=== PATIENT | male | born 1985 | race Caucasian/White ===

== ENCOUNTER 2016-06-01 14:46 | Inpatient (IN) | payer OTHER ==
[~2016-06-01] VITALS: Ht 182.9 cm; Wt 123.2 kg
--- NOTE | ~2016-06-01 | ST ---
[place], [place] EXERCISE STRESS TEST REPORT NAME: MARCO BAUMANN [facility] #: [id number] UNIT #: [id number] ROOM: 402 DOCTOR: VIJAY ESTRADA,GABRIEL BIRTHDATE: [birth year] DOS: 06/02/2016 LEXISCAN STRESS TEST REFERRING PHYSICIAN: Dr. Erickson. REASON FOR TEST: Evaluation of chest pain. PHYSICAL EXAMINATION NECK: Supple. LUNGS: Clear anteriorly. HEART: Regular rhythm. PROTOCOL: Lexiscan protocol. The patient received 0.4 mg of Lexiscan and his heart rate, heart rhythm and the EKGs were monitored. The patient achieved maximum heart rate of 113 and a peak blood pressure 122/64. There are no EKG changes. The patient had chest pain at rest prior to the stress test, which was unchanged during the Lexiscan infusion. CONCLUSION: Clinically, the patient developed no new chest pain and EKG showed no ischemia. POST-STRESS COMPLICATIONS: None. GABRIEL LINARES MD CM:STRESS:EXERCISE STRESS TEST REPORT [id number] GABRIEL LINARES MD
[~2016-06-01 14:46] MED LIST: AUGMENTIN 875 M1 TAB PO; CLARITIN10 MG PO
[2016-06-01 14:49] VITALS: BP 136/84
[2016-06-01] MEDS ORDERED: AMOX/CLAV POT 81 TAB PO (15:01)
[2016-06-01 15:14] LABS: BASO % 0.2 % (0.0-1.0); EOS # 0.5 10*3/uL (0.0-0.4); EOS % 3.2 % (1.0-4.0); HEMATOCRIT 46.1 % (42.0-52.0); HEMOGLOBIN 15.9 g/dl (14.0-18.0); LYMPH # 3.5 10*3/uL (1.3-4.4); LYMPH % 24.2 % (27.0-41.0); MEAN CELL VOLUME 90.4 fl (80.0-94.0); MEAN CORPUSCULAR HGB 31.2 pg (27.0-31.0); MEAN CORPUSCULAR HGB CONC 34.5 g/dl (33.0-37.0); MEAN PLATELET VOLUME 10.7 fl (9.6-12.3); MONO # 0.8 10*3/uL (0.1-1.0); MONO % 5.3 % (3.0-9.0); NEUT # 9.5 10*3/uL (2.3-7.9); NEUT % 66.9 % (47.0-73.0); PLATELET COUNT AUTOMATED 195 10*3/uL (130-400); RED CELL DISTRI WIDTH 13.1 % (0-14.5); WHITE BLOOD COUNT 14.3 10*3/uL (4.8-10.8)
[2016-06-01 15:23] LABS: PROTHROMBIN TIME 10.3 SECONDS (9.0-12.4)
[2016-06-01 15:26] VITALS: BP 136/77
[2016-06-01 15:31] LABS: ALBUMIN 3.6 gm/dl (3.1-4.5); ALKALINE PHOSPHATASE 92 U/L (45-117); BILIRUBIN, TOTAL 0.3 mg/dl (0.2-1.0); BUN 13 mg/dl (7-24); CARBON DIOXIDE 26 mmol/L (21-32); CHLORIDE 109 mmol/L (98-107); EST GLOM FILT AFRICAN AMERICAN > 60 ml/min; GLUCOSE 116 mg/dL (65-99); MAGNESIUM 2.3 mg/dL (1.5-2.1); POTASSIUM 3.7 mmol/L (3.5-5.1); SGOT/AST 26 IU/L (3-35); SGPT/ALT 69 U/L (12-78); SODIUM 145 mmol/L (136-145)
[2016-06-01 15:33] LABS: TROPONIN I < 0.015 ng/ml (<0.045)
[2016-06-01 15:51] VITALS: BP 116/81
[2016-06-01 16:27] VITALS: BP 127/74
[2016-06-01 16:40] VITALS: BP 137/78
[2016-06-01 17:54] LABS: CKMB 1.7 ng/ml (0.5-3.6); CPK 110 U/L (39-308)
[2016-06-01 17:55] LABS: TROPONIN I < 0.015 ng/ml (<0.045)
[2016-06-01 20:00] VITALS: BP 123/76
[2016-06-02] VITALS: BP 154/77
[2016-06-02 00:26] LABS: CKMB 1.3 ng/ml (0.5-3.6); TROPONIN I < 0.015 ng/ml (<0.045)
[2016-06-02 00:27] LABS: CPK 128 U/L (39-308)
[2016-06-02 06:11] LABS: BASO % 0.3 % (0.0-1.0); EOS # 0.6 10*3/uL (0.0-0.4); EOS % 4.7 % (1.0-4.0); HEMATOCRIT 44.9 % (42.0-52.0); HEMOGLOBIN 15.1 g/dl (14.0-18.0); LYMPH # 3.9 10*3/uL (1.3-4.4); LYMPH % 32.8 % (27.0-41.0); MEAN CORPUSCULAR HGB 30.9 pg (27.0-31.0); MEAN CORPUSCULAR HGB CONC 33.6 g/dl (33.0-37.0); MEAN PLATELET VOLUME 10.8 fl (9.6-12.3); MONO # 0.8 10*3/uL (0.1-1.0); MONO % 6.6 % (3.0-9.0); NEUT # 6.7 10*3/uL (2.3-7.9); NEUT % 55.3 % (47.0-73.0); PLATELET COUNT AUTOMATED 169 10*3/uL (130-400); RED BLOOD COUNT 4.88 10*6/uL (4.50-5.90); RED CELL DISTRI WIDTH 13.1 % (0-14.5)
[2016-06-02 06:25] LABS: CKMB 1.7 ng/ml (0.5-3.6); CPK 94 U/L (39-308); TROPONIN I < 0.015 ng/ml (<0.045)
[2016-06-02 06:29] LABS: HEMOGLOBIN A1c 5.4 % (4.8-5.6)
[2016-06-02 06:43] LABS: BUN 13 mg/dl (7-24); CARBON DIOXIDE 27 mmol/L (21-32); CHLORIDE 109 mmol/L (98-107); CHOLESTEROL 171 mg/dL (<200); EST GLOM FILT AFRICAN AMERICAN > 60 ml/min; FREE T4 1.02 ng/dl (0.76-1.46); GLUCOSE 88 mg/dL (65-99); MAGNESIUM 2.3 mg/dL (1.5-2.1); PHOSPHOROUS 3.8 mg/dL (2.5-4.9); POTASSIUM 4.2 mmol/L (3.5-5.1); SODIUM 143 mmol/L (136-145); TRIGLYCERIDES 158 mg/dl (<150); VLDL CHOLESTEROL 32 mg/dL (6-40)
[2016-06-02 06:49] LABS: HDL CHOLESTEROL 29 mg/dl (40-60); LDL CHOLESTEROL 110 mg/dL (9-159)
[2016-06-02 07:32] LABS: FOLIC ACID 5.09 ng/mL (>5.38); VITAMIN D, 25-HYDROXY 9.9 ng/mL (30-100)
[2016-06-02 08:00] VITALS: BP 118/72
[2016-06-02] MEDS ORDERED: D-1000 185 MG-11 TAB PO (09:39)
[2016-06-02 16:00] VITALS: BP 141/68
[2016-06-02] MEDS ORDERED: PANTOPRAZOLE SO40 MG PO (17:01)
== END 2016-06-02 19:06 | disposition home or self-care (01) | DRG 313 ==
LOC: ED 14:46 → EDHOLD 15:43 → 4E 16:28
PROVIDERS: Family Medicine; Nurse Practitioner Family
PROC: 4A02XM4 Measurement of Cardiac Total Activity, External Approach (ICD-10-PCS; principal; 2016-06-02)
DX: R07.9 Chest pain, unspecified (principal); I10 Essential (primary) hypertension; J32.9 Chronic sinusitis, unspecified; F17.210 Nicotine dependence, cigarettes, uncomplicated; Z83.3 Family history of diabetes mellitus; Z82.49 Family history of ischemic heart disease and other diseases of the circulatory system; Z79.2 Long term (current) use of antibiotics

== ENCOUNTER 2020-08-10 17:29 | Emergency (ER) | payer BC ==
[~2020-08-10] VITALS: Ht 182.8 cm; Wt 138.3 kg
[~2020-08-10 17:29] MED LIST changes: +AMOX/CLAV POT 81 TAB PO; +D-1000 185 MG-11 TAB PO; +PANTOPRAZOLE SO40 MG PO
[2020-08-10 18:10] VITALS: BP 131/78
[2020-08-10] MEDS ORDERED: SERTRALINE HYD100 MG PO (18:29)
== END 2020-08-10 19:10 | disposition home or self-care (01) ==
LOC: ED 17:29
DX: S61.210A Laceration without foreign body of right index finger without damage to nail, initial encounter (principal); F17.200 Nicotine dependence, unspecified, uncomplicated; Z79.899 Other long term (current) drug therapy; W22.8XXA Striking against or struck by other objects, initial encounter; Y93.89 Activity, other specified; Y92.89 Other specified places as the place of occurrence of the external cause; Y99.9 Unspecified external cause status

== ENCOUNTER 2023-01-09 14:23 | Emergency (ER) | payer BC ==
[~2023-01-09] VITALS: Ht 182.8 cm; Wt 144.7 kg
[~2023-01-09 14:23] MED LIST changes: +SERTRALINE HYD100 MG PO
[2023-01-09 14:57] VITALS: BP 149/111
[2023-01-09] MEDS ORDERED: METHOCARBAMOL500 M1 PO (17:58)
[2023-01-09] MEDS ORDERED: NAPROSYN500 MG PO (17:58)
== END 2023-01-09 18:33 | disposition home or self-care (01) ==
LOC: ED 14:23
DX: S93.401A Sprain of unspecified ligament of right ankle, initial encounter (principal); S63.91XA Sprain of unspecified part of right wrist and hand, initial encounter; S16.1XXA Strain of muscle, fascia and tendon at neck level, initial encounter; F32.A Depression, unspecified; Z98.890 Other specified postprocedural states; F17.200 Nicotine dependence, unspecified, uncomplicated; V59.9XXA Occupant (driver) (passenger) of pick-up truck or van injured in unspecified traffic accident, initial encounter; Y93.89 Activity, other specified; Y92.410 Unspecified street and highway as the place of occurrence of the external cause; Y99.8 Other external cause status